=== PATIENT | female | born 1975 | race African-American/Black ===

== ENCOUNTER 2024-01-21 19:37 | Emergency (ER) | payer OTHER ==
[2024-01-21 19:44] VITALS: BP 132/75; PULSE 76; RESP 20; TEMP 98; BMI 41.1
[2024-01-21] MEDS ORDERED: RABIES VACCINE (PCEC)/PF 2.5 UNIT/VIAL IM ONE (20:15)
[2024-01-21] MEDS: RABIES VACCINE (PCEC)/PF 2.5 UNIT/VIAL IM ONE (20:29)
== END 2024-01-21 21:24 | disposition home or self-care (01) ==
LOC: FER 19:37
PROC: 3E0234Z Introduction of Serum, Toxoid and Vaccine into Muscle, Percutaneous Approach (ICD-10-PCS; principal; 2024-01-21)
DX: Z29.14 Encounter for prophylactic rabies immune globulin (principal)
CPT/HCPCS: 90471; 90675; 99281-25

== ENCOUNTER 2024-01-28 13:16 | Emergency (ER) | payer OTHER ==
[2024-01-28 13:29] VITALS: BP 132/81; PULSE 78; RESP 18; TEMP 98; BMI 54.8
[2024-01-28] MEDS ORDERED: RABIES VACCINE (PCEC)/PF 2.5 UNIT/VIAL IM ONE (13:29)
[2024-01-28] MEDS: RABIES VACCINE (PCEC)/PF 2.5 UNIT/VIAL IM ONE (13:37)
== END 2024-01-28 13:45 | disposition home or self-care (01) ==
LOC: FER 13:16
PROC: 3E0234Z Introduction of Serum, Toxoid and Vaccine into Muscle, Percutaneous Approach (ICD-10-PCS; principal; 2024-01-28)
DX: Z29.14 Encounter for prophylactic rabies immune globulin (principal)
CPT/HCPCS: 90471; 90675; 99281-25